=== PATIENT | male | born 1930 | race Caucasian/White ===

== ENCOUNTER 2018-05-12 16:38 | Emergency (ER) | payer MEDICARE, BC ==
[2018-05-12 17:12] LABS: #Basophils 0.1 thou/uL (0.0-0.2); #Eosinphils 0.2 thou/uL (0.0-0.7); #Lymphocytes 1.5 thou/uL (1.20-3.40); #Monocytes 0.6 thou/uL (0.11-0.59); #Neutrophils 4.5 thou/uL (1.40-6.50); %Basophils 1.2 % (0.0-1.0); %Eosinophils 2.4 % (0.0-10.0); %Lymphocytes 21.9 % (21.0-51.0); %Monocytes 9.4 % (0.0-10.0); %Neutrophils 65.1 % (42.0-75.0); Mean Corpuscular HGB CONC 33.1 g/dL (32.0-36.0); Mean Corpuscular Hemoglobin 29.1 pg (27.0-31.0); Mean Corpuscular Volume 88.1 fL (78.0-98.0); Mean Platelet Volume 7.8 fL (7.4-10.4); Platelet Count 188 thou/uL (130-400); RBC Distribution Width 12.1 % (11.5-14.5); Red Blood Cell (RBC) Count 4.79 mill/uL (4.70-6.10); White Blood Cell (WBC) Count 6.8 thou/uL (4.8-10.8)
[2018-05-12 17:14] LABS: MDiff Complete? YES
[2018-05-12] MEDS ORDERED: Aspirin Chewable 81 MG TAB ONE (17:14)
[2018-05-12 17:29] LABS: ALT (SGPT) 22 U/L (8-55); AST (SGOT) 30 U/L (5-34); Albumin 4.4 g/dL (3.4-4.8); Alkaline Phosphatase 87 U/L (40-150); Anion Gap 16 mmol/L (10-20); BUN (Urea Nitrogen) 22 mg/dL (8.4-25.7); Bilirubin, Total 0.8 mg/dL (0.2-1.2); CK (CPK) 70 U/L (30-200); Calc. Creatinine Clearance 0 mL/min (70-130); Calcium 10.1 mg/dL (7.8-10.44); Carbon Dioxide 24 mmol/L (23-31); Chloride 100 mmol/L (98-107); Estimated GFR-MDRD 60; Globulin 3.4 g/dL (2.4-3.5); Glucose 98 mg/dL (83-110); Lipase 87 U/L (8-78); Potassium 3.9 mmol/L (3.5-5.1); Protein, Total 7.8 g/dL (5.8-8.1); Sodium 136 mmol/L (136-145)
[2018-05-12 17:54] LABS: CKMB 1.9 ng/mL (0-6.6)
[2018-05-12 17:57] LABS: INR-International Normal Ratio 2.3; PTT 30.5 SEC (22.9-36.1); Prothrombin Time 25.2 SEC (12.0-14.7)
--- NOTE | 2018-05-12 18:42 | RAD ---
PORTABLE CHEST: 05/12/18 HISTORY: Chest pain. Heart size is within normal limits. There are atherosclerotic changes of the aorta. There is some bib asilar mainly interstitial changes, slightly more prominent in the right base. I cannot exclude this represents some minimal infiltrate. IMPRESSION: Bibasilar mainly interstitial lung changes, slightly more prominent in the right base probably on the basis of atelectasis. POS: [facility]
== END 2018-05-12 18:25 | disposition short-term general hospital (02) ==
LOC: NAV ERS 16:38
DX: R07.2 Precordial pain (principal); R79.89 Other specified abnormal findings of blood chemistry; I10 Essential (primary) hypertension; E11.9 Type 2 diabetes mellitus without complications; E78.00 Pure hypercholesterolemia, unspecified; Z86.718 Personal history of other venous thrombosis and embolism; F41.9 Anxiety disorder, unspecified; F32.9 Major depressive disorder, single episode, unspecified; Z79.899 Other long term (current) drug therapy; Z79.01 Long term (current) use of anticoagulants
CPT/HCPCS: 36415; 71045; 80053; 82550; 82553; 83690; 84484; 85025; 85610; 85730; 93005